=== PATIENT | female | born 1940 | race Caucasian/White ===

== ENCOUNTER → 2023-07-29 11:27 | Outpatient (REF) | payer MEDICARE, OTHER, SELFPAY | LOC: RAD 11:27 | PROVIDERS: ATTENDING PHYSICIAN Family Medicine | DX: M25.552 Pain in left hip (principal) | CPT/HCPCS: 72110; 73502 ==

== ENCOUNTER → 2023-08-18 13:08 | Outpatient (REF) | payer MEDICARE, OTHER, SELFPAY | LOC: WDC 13:08 | PROVIDERS: ATTENDING PHYSICIAN Internal Medicine Hematology & Oncology; FAMILY PHYSICIAN Family Medicine | DX: Z12.31 Encounter for screening mammogram for malignant neoplasm of breast (principal); Z85.3 Personal history of malignant neoplasm of breast; C50.112 Malignant neoplasm of central portion of left female breast | CPT/HCPCS: 77063; 77067 ==

== ENCOUNTER → 2023-09-03 13:18 | Outpatient (REF) | payer MEDICARE, OTHER, SELFPAY | LOC: RAD 13:18 | PROVIDERS: ATTENDING PHYSICIAN Internal Medicine Hematology & Oncology; FAMILY PHYSICIAN Family Medicine | DX: C50.112 Malignant neoplasm of central portion of left female breast (principal); M81.0 Age-related osteoporosis without current pathological fracture | CPT/HCPCS: 77080 ==

== ENCOUNTER 2024-04-24 19:07 | Inpatient (IN) | payer MEDICARE, OTHER, SELFPAY ==
[2024-04-24 15:18] VITALS: BP 166/109
[2024-04-24 15:51] LABS: % Basophils 0.4 % (0-2); % Eosinophils 0.4 % (0-6); % Immature Granulocytes 0.4 % (0-0.5); % Lymphocytes 9.5 % (20.5-51.1); % Monocytes 9.3 % (1.7-9.3); Absolute Lymphocytes 0.7 10^3/uL (1.2-3.4); Absolute Monocytes 0.7 10^3/uL (0.1-0.6); Absolute Neutrophils 5.7 10^3/uL (1.4-6.5); Hematocrit 41.4 % (37.0-47.0); Hemoglobin 13.5 g/dL (12.0-16.0); Mean Corp Hgb Conc. 32.6 g/dL (33.0-37.0); Mean Corpuscular Hgb 27.5 pg (27.0-31.0); Mean Corpuscular Volume 84.3 fL (81.0-99.0); Nucleated Red Blood Cells % 0 %; Platelet Count 113 10^3/uL (130-400); Red Blood Cell Count 4.91 10^6/uL (4.20-5.40); White Blood Cell Count 7.1 10^3/uL (4.8-10.8)
[2024-04-24 16:02] LABS: ALT (SGPT) 21 U/L (0-35); AST (SGOT) 18 U/L (14-36); Albumin 3.5 g/dl (3.5-5.0); Alkaline Phosphatase 96 U/L (38-126); Blood Urea Nitrogen 25 mg/dl (7-17); Calcium 9.4 mg/dl (8.4-10.2); Carbon Dioxide 29 mmol/L (22-30); Chloride 101 mmol/L (98-107); Glucose 115 mg/dl (70-99); Potassium 3.5 mmol/L (3.5-5.1); Sodium 138 mmol/L (135-145); Total Bilirubin 1.9 mg/dl (0.2-1.3); Total Protein 6.2 g/dl (6.3-8.2); eGFR > 60.00
[2024-04-24 16:16] LABS: NT-proBNP 18200 pg/ml; Troponin I 0.117 ng/ml
[2024-04-24 17:21] VITALS: BMI 28.4
[2024-04-24 17:25] VITALS: BP 169/126
[2024-04-24 17:26] VITALS: BP 157/101
--- NOTE | 2024-04-24 18:05 | ED.GENMED ---
History of Present Illness
General
Chief Complaint: Breathing Problem
Time Seen by Provider: 04/24/24 16:50
History of Present Illness
History of Present Illness:
84-year-old female with history of hypertension presents the emergency department for evaluation of paroxysmal nocturnal dyspnea as well as intermittent dyspnea on exertion for the past 1 to 2 weeks. She denies any chest pain. Has a feeling of
panic frequently throughout the night. No fevers or chills. Does have occasional cough with clear sputum production. Denies weight gain or leg swelling
Review of Systems
Review of Systems
Allergies reviewed?: Yes
All Other Systems: ROS reviewed and negative except as documented in HPI and ROS
Phy Exam
Physical Exam
Physical Exam:
GEN: Well appearing, NAD, WDWN
HEENT: Oral mucosa moist, no scleral icterus
Cardiac: Regular rate and rhythm
Lung: No respiratory distress, no tachypnea, diminished left lung sounds
MSK: No gross deformity or injuries, no significant peripheral edema
Skin: Good color, no pallor or jaundice, no rashes
Neuro: AO x3, moves all extremities freely
Psych: Calm, cooperative
Scores
Heart Failure Risk
Heart Failure Risk Score: Yes
History of Stroke or TIA: No
History of intubation for respiratory distress: No
Heart rate on ED arrival >/= 110: No
SaO2 <90% on arrival on room air: No
HR >/=110 during 3min walk test (or too ill to perform test): No
ECG has acute ischemic changes: Yes
Urea >/=12mmol/L (BUN 33.6mg/dL): No
Serum CO2>/=35mmol/L: No
Troponin I or T elevated to MD Level (0.4mg/dL): Yes
NT-proBNP >/=5,000ng/L (5,000pg/ml): Yes
HF Risk Score: 5
Admission Status: VERY HIGH RISK 39.8% Consider admission to hospital
Course
Orders/Labs/Results
Orders:
Orders
04/24/24 15:22
Electrocardiogram (*1) Urgent
Reason for Study: Shortness of Breath
EKG- Treatment ONCE
04/24/24 15:36
Complete Blood Count/With Diff Urgent
Comprehensive Metabolic Panel Urgent
Pro-BNP [NT-proBNP] Urgent
Troponin I Urgent
04/24/24 16:45
CR Chest - 2 Views Urgent
Comment:
Reason For Exam: soob
04/24/24 18:08
Furosemide [Lasix] 20 mg IV NOW STA
Potassium Chloride [KCl] 40 meq PO NOW STA
04/24/24 18:39
Admit/Transfer Patient As Directed
Co-Sign Provider:
Level of Care: Inpatient admission
Assign to:: Telemetry
Physician / Group: [email or web address]
Diagnosis: Acute HF - type unknown suspect acute on chr Diastolic CHF
Reason for Telemetry: Acute Heart Failure
Date to Stop Telemetry: 04/27/24
Time to Stop Telemetry: 11:00
Reason for Hospitalization: Acute HF - type unknown suspect acute on chr Diastolic CHF
Expected length of stay greater than two midnights?: Yes
ELOS- Estimated Length of Stay in days: 3
I certify the patient meets the requirements for IP care: Yes
04/24/24 18:40
Code Status As Directed
Resuscitation Status: Full Code
04/24/24 18:53
Code Status As Directed
Resuscitation Status: Do not resuscitate
Reached after discussion with pt or family/Healthcare POA: Yes
DNR Bracelet Application ONCE
04/27/24 11:00
DC Protocol for Telemetry ONCE
Abnormal Lab Results
04/24/24
15:36
MCHC 32.6 L g/dL
(33.0-37.0)
RDW 17.0 H %
(11.5-14.5)
Plt Count 113 L 10^3/uL
(130-400)
Absolute Lymphs (auto) 0.7 L 10^3/uL
(1.2-3.4)
Absolute Monos (auto) 0.7 H 10^3/uL
(0.1-0.6)
Neutrophils % 80.0 H %
(42.2-75.2)
Lymphocytes % 9.5 L %
(20.5-51.1)
BUN 25 H mg/dl
(7-17)
Glucose 115 H mg/dl
(70-99)
Total Bilirubin 1.9 H mg/dl
(0.2-1.3)
Troponin I 0.117 H* ng/ml
Total Protein 6.2 L g/dl
(6.3-8.2)
04/24/24 15:36
04/24/24 15:36
Vital Signs
Initial and Last Documented VS:
Initial Vital Signs
Temp Pulse Resp BP Pulse Ox
97.7 F 103 19 166/109 95
04/24/24 15:18 04/24/24 15:18 04/24/24 15:18 04/24/24 15:18 04/24/24 15:18
Last Documented Vital Signs
Temp Pulse Resp BP Pulse Ox
97.8 F 82 20 136/85 92
04/24/24 17:25 04/24/24 18:26 04/24/24 17:30 04/24/24 18:26 04/24/24 17:30
MDM/Problems Addressed
MDM/Problems Addressed:
Patient does have new EKG changes particularly V3 with some ischemic changes however no chest pain to suggest NSTEMI. Elevated troponin likely on the basis of acute CHF. Will admit for further workup and management
Comment
Comment:
EKG independently interpreted by me shows normal sinus rhythm with PVCs, T wave inversion noted in V3
Chest x-ray independently interpreted by me shows cardiomegaly with a left pleural effusion
*Critical Care Note
Total Time (30-74mins, 75-104mins- exclusive of procedures): Not Applicable
ED Attending Note
-
Portions of this chart may have been created with voice recognition software.� Occasional wrong word or��sound alike� substitutions may have occurred due to the inherent limitations of voice recognition software.
Discharge Plan
Departure
Patient Disposition: Admit
Date of Disposition: 04/24/24
Time of Disposition: 18:07
Admit to: Telemetry
Presentation/result/management discussed w/ accepting MD/DO: Hospitalist
Discharge Problem:
Acute CHF
Interventions
Interventions:
*Risk Screen - Suicide Last Done: 04/24/24 15:21
*General Assessment Last Done: 04/24/24 15:21
*Neglect/Abuse Screening Last Done: 04/24/24 15:21
*ED- Fall Risk Assessment Last Done: 04/24/24 15:21
*ED COVID-19 Vaccine History Last Done: 04/24/24 15:21
ED- Cardiac Assessment Last Done: 04/24/24 19:52
ED- Pulmonary Assessment Last Done: 04/24/24 19:52
[2024-04-24] MEDS: KCL 40 MEQ PO (18:26)
[2024-04-24] MEDS: LASIX 20 MG IV (18:26)
--- NOTE | 2024-04-24 18:33 | HPS.HSE ---
Addendum entered and electronically signed by Live Day MD 04/25/24 08:32:
Final CXR report
- Cardiomegaly with small to moderate bilateral pleural effusions, left slightly greater than right.
- Mild increased interstitial markings, especially in the left perihilar region, suggestive of mild interstitial pulmonary edema.
Original Note:
Family Physician
-
Family Physician: Cecilia Bourgeois
Chief Complaint
-
SoB
History of Present Illness
84F HX HX HTN, HLD seen at ER
- evaluation of paroxysmal nocturnal dyspnea
- intermittent dyspnea on exertion for the past 1 to 2 weeks.
- feeling of panic frequently throughout the night.
ROS:
- denies any chest pain.
- no fevers or chills.
- occasional cough with clear sputum production.
- denies weight gain or leg swelling
Medical History
Past Medical History
Past Medical History: Reports HTN and Hypercholesterolemia
Past Surgical History: Reports Other
Social History
Tobacco: Non-smoker
Alcohol: None
Drug: None
Family History
Family History: Not pertinent
Allergies / Home Medications
Allergies reflects when Allergies were last updated in [facility].
Home Medications with original date entered in [facility]
Allergy/Medication List:
Allergies
Allergy/AdvReac Type Severity Reaction Status Date / Time
chemo drug Allergy eyes Uncoded 10/19/19 08:36
turned
red;chest
constricted
Home Medications
acetaminophen 325 mg tablet 650 mg PO Q4HPRN PRN discomfort 10/15/19
cholecalciferol (vitamin D3) 50 mcg (2,000 unit) tablet 2,000 units PO DAILY Supplement 10/15/19
letrozole 2.5 mg tablet 2.5 mg PO DAILY Hormonal agent 10/15/19
lisinopril 20 mg tablet 20 mg PO DAILY Blood pressure 10/15/19
atorvastatin 10 mg tablet 20 mg PO QPM 11/06/20
alendronate 70 mg tablet 70 mg PO SA 04/24/24
Review of Systems
-
Constitutional: Reports No Symptoms
EENT: Reports No Symptoms
Respiratory: Reports See HPI and Trouble Breathing
Cardiac: Reports No Symptoms
Abdomen/GI: Reports No Symptoms
: Reports No Symptoms
Musculoskeletal: Reports No Symptoms
Skin: Reports No Symptoms
Neurological: Reports No Symptoms
Endocrine: Reports No Symptoms
Hematologic/Lymphatic: Reports No Symptoms
Psych: Reports No Symptoms
Physical Exam
Vital Signs
Vital Signs
Temp Pulse Resp BP Pulse Ox
97.8 F 82 20 136/85 92
04/24/24 17:25 04/24/24 18:26 04/24/24 17:30 04/24/24 18:26 04/24/24 17:30
Physical Exam
General: Well Developed, Well Nourished and No Apparent Distress
HEENT: NormoCephalic, Moist mucous membranes and Atraumatic
Respiratory: Clear
Cardiac: S1/S2 and Regular Rhythm; No Murmur or Rub
GI: Soft, Non Tender, Non Distended and Normal Bowel Sounds; No Organomegaly
Rectal: Deferred by Provider
Musculoskeletal: No Clubbing, No Cyanosis and No Edema
Skin: No Rash
Neuro: Nonfocal/grossly intact
Laboratory Results
-
04/24/24 15:36
04/24/24 15:36
Laboratory Results
Total Bilirubin 1.9 mg/dl (0.2-1.3) H 04/24/24 15:36
AST 18 U/L (14-36) 04/24/24 15:36
ALT 21 U/L (0-35) 04/24/24 15:36
Alkaline Phosphatase 96 U/L (38-126) 04/24/24 15:36
Troponin I 0.117 ng/ml H* 04/24/24 15:36
Data Reviewed
-
Diagnostic Radiology: Report Reviewed by me
Medical Tests (Nuc Med, Echo, EKG etc): Report Reviewed by me
Lab Data: Labs Reviewed by me
Impression/Plan
-
Vital Signs
Temp Pulse Resp BP Pulse Ox
97.8 F 82 20 136/85 92
04/24/24 17:25 04/24/24 18:26 04/24/24 17:30 04/24/24 18:26 04/24/24 17:30
04/24/24
15:18 04/24/24
17:25
Temp 97.7 F
Pulse 103 83
Blood pressure 166/109 169/126
SaO2 95
Oxygen Mode of Delivery Room air
Laboratory Tests
1804/24/24
09:10 15:36
WBC 7.1
Hgb 13.5
Plt Count 186 113 L
BUN 25 H
Creatinine 0.8
eGFR > 60.00
Total Bilirubin 1.9 H
AST 18
ALT 21
Troponin I 0.117 H*
Oau-B-Kxsvannqemi Pept [id number]
CXR my view:
Cardiomegaly
Lt sided pleural effusion
CHF ?
EKG report
SINUS RHYTHM WITH PREMATURE ATRIAL COMPLEXES
POSSIBLE LEFT ATRIAL ENLARGEMENT
RIGHT BUNDLE BRANCH BLOCK
T WAVE ABNORMALITY, CONSIDER INFERIOR ISCHEMIA
ABNORMAL ECG
WHEN COMPARED WITH ECG OF 04-OCT-2019 09:23,
PREMATURE ATRIAL COMPLEXES ARE NOW PRESENT
T WAVE INVERSION MORE EVIDENT IN INFERIOR LEADS
T WAVE INVERSION NOW EVIDENT IN ANTERIOR LEADS
02/14/20 TTE
LVEF 60-65
Normal diastolic filling pattern for age.
Normal right ventricular size and function.
mild MR
mild TR
PASP 35
NO PRIOR hospitalist admission:
ASSESSMENT & PLAN
Acute HF - type unknown suspect acute on chr Diastolic CHF
Lt sided pleural effusion
Significant proBNP
Elevated TPN due to NIMI
Known to Dr Judith Vasquez
- IV Lasix
- Daily Wt, IOs, BMP
- trend TPN till peak
- ECHO in AM
- [facility] card consult
HX Lt breast CA 3 yrs ago
S/p mastectomy, XRT and 2rounds of chemo
- c/w Letrozole
- f/u with [facility]
Essential HTN
- c/w [employer] Lisinopril
HLD
- on [employer] Atorvastatin
DVT Px: LMWH
DNR per patient
IP TLM
[2024-04-24 21:20] VITALS: BP 175/115; BMI 27.1
[2024-04-24 23:03] LABS: Troponin I 0.129 ng/ml
[2024-04-24 23:48] VITALS: BP 144/92
--- NOTE | 2024-04-25 00:25 | PTCARENOTE ---
Pt with 8 beat run tachycardia, irregular rate, unable to catch on ekg. Strip placed in chart. House [employer] aware.
[2024-04-25 03:49] VITALS: BP 158/94
[2024-04-25 04:41] LABS: Troponin I 0.159 ng/ml
--- NOTE | 2024-04-25 05:22 | PTCARENOTE ---
pts troponin 0.117 0.129 0.159, EKGs completed. House [employer] aware.
[2024-04-25 06:00] VITALS: BMI 26.4
[2024-04-25 07:15] VITALS: BP 160/99
[2024-04-25] MEDS: LASIX 20 MG IV ×2 (08:49→16:41)
[2024-04-25] MEDS: ZESTRIL 20 MG PO (08:50)
[2024-04-25] MEDS: FEMARA 2.5 MG PO (08:50)
[2024-04-25 10:47] LABS: ALT (SGPT) 22 U/L (0-35); AST (SGOT) 19 U/L (14-36); Albumin 3.5 g/dl (3.5-5.0); Alkaline Phosphatase 97 U/L (38-126); Blood Urea Nitrogen 21 mg/dl (7-17); Calcium 9.5 mg/dl (8.4-10.2); Carbon Dioxide 33 mmol/L (22-30); Chloride 100 mmol/L (98-107); Direct Bilirubin 0.4 mg/dl (0.0-0.4); Estimated Creatinine Clearance 49 ml/min; Glucose 135 mg/dl (70-99); HDL Cholesterol 49 mg/dl; LDL Cholesterol, Calculated 84 mg/dl; Magnesium 1.7 mg/dl (1.6-2.3); Potassium 3.6 mmol/L (3.5-5.1); Sodium 140 mmol/L (135-145); Total Bilirubin 2.5 mg/dl (0.2-1.3); Total Cholesterol 149 mg/dl (50-199); Total Protein 6.3 g/dl (6.3-8.2); Triglyceride 82 mg/dl (10-149); Very Low Density Lipoprotein 16 mg/dl (0-30); eGFR > 60.00
--- NOTE | 2024-04-25 10:53 | W.PN.HOSP.TC ---
Today's Communication/Plan
-
Monitor vital signs see plan
Continue with IV Lasix
Trend troponin
Cardiology to see
Echo
Assessment / Plan
Assessment / Plan
Acute congestive heart failure exacerbation, unknown EF
Echo 2020 with EF 60 to 65%
Continue with IV Lasix
Elevated proBNP
Chest x-ray with fluid overload
I's and O's
Echo
Cardiology consulted
Elevated troponin
Continue to trend
Denies any chest pain
History of breast cancer status post mastectomy, and XRT and 2 rounds of chemotherapy
Continue with letrozole
Follows up with oncology
Essential hypertension
Continue lisinopril
Hyperlipidemia
DVT prophylaxis
Lovenox
DNR
General: Well Developed, Well Nourished and No Apparent Distress
HEENT: NormoCephalic, Moist mucous membranes and Atraumatic
Respiratory: Clear
Cardiac: S1/S2 and Regular Rhythm; No Murmur or Rub
GI: Soft, Non Tender, Non Distended and Normal Bowel Sounds
Musculoskeletal: No Edema
Neuro: Nonfocal/grossly intact
Anticipated Discharge: > 48 hours
Subjective/Interval History
-
Date of Service: April 25, 2024
Denies chest pain
Objective Data
-
Labs:
Laboratory Results
04/25/24
10:25
Sodium 140
Potassium 3.6
Chloride 100
Carbon Dioxide 33 H
BUN 21 H
Creatinine 0.8
Glucose 135 H
Calcium 9.5
Total Bilirubin 2.5 H
AST 19
ALT 22
Alkaline Phosphatase 97
Vital Signs:
Vital Signs
Temp Pulse Resp BP Pulse Ox
97.5 F 81 16 160/99 96
04/25/24 07:15 04/25/24 08:50 04/25/24 07:15 04/25/24 08:50 04/25/24 07:15
I&O
04/24/24 04/25/24 04/26/24
06:59 06:59 06:59
Output Total 1100 / 1100
Balance -1100 / -1100
--- NOTE | 2024-04-25 11:01 | CON.CAR ---
Consultation
Consultation Request
Date/Time Consultation Requested: April 24, 2024
Date/Time Consultation Performed: April 25, 2024
Requesting Provider: Hospitalist
Performing Provider: Dr Pancho valentine
Reason for Consultation: Congestive heart failure, acute symptomatic
Medical History
-
Chief Complaint: Shortness of breath, dyspnea on exertion
History of Present Illness:
Elderly woman who presented to the emergency department with intermittent dyspnea on exertion as well as waking up in the middle of the night with dyspnea. This has been progressive over the course of the past 2 weeks. No chest pain. No fevers
chills or night sweats.
Presenting EKG is sinus rhythm with PACs, right bundle branch block and T wave abnormalities inferiorly and anteriorly serial EKGs essentially unchanged
Blood work on presentation includes elevated proBNP at 18,200, troponin values 0.117 -> 0.129 -> 0.159 -> 0.143, BUN and creatinine of 25 and 0.8 with sodium of 138 and potassium 3.5, total cholesterol 149, LDL 84, HDL 49, triglycerides 82,
hemoglobin and hematocrit 13.5 and 41
CXR findings consist of mild interstitial pulmonary edema as well as small to moderate-sized bilateral pleural effusions with the left being greater than the right
Echocardiogram from February 14, 2020 finds LVEF of 60 to 65%, normal RV size and function with mild mitral regurgitation and mild tricuspid regurgitation.
Past medical history:
Right bundle branch block
Essential hypertension
Breast cancer
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
Treated with chemotherapy which included Adriamycin and Cytoxan. Then treated with Taxol but changed to paclitaxel given adverse reaction to Taxol.
She also received 6 weeks of radiation.
She underwent mastectomy 10/19/2019.
Dyslipidemia
Social History
Tobacco: Non-Smoker
Alcohol: None
Drug: None
Family History
Family History: Reviewed & Not Pertinent
Allergies / Home Medications
Allergy/AdvReac Type Severity Reaction Status Date / Time
chemo drug Allergy eyes Uncoded 10/19/19 08:36
turned
red;chest
constricted
�Medication �Instructions �Recorded �Confirmed �Type
acetaminophen 325 mg tablet 650 mg PO Q4HPRN PRN discomfort 10/15/19 04/24/24 History
cholecalciferol (vitamin D3) 50 2,000 units PO DAILY Supplement 10/15/19 04/24/24 History
mcg (2,000 unit) tablet
letrozole 2.5 mg tablet 2.5 mg PO DAILY Hormonal agent 10/15/19 04/24/24 History
lisinopril 20 mg tablet 20 mg PO DAILY Blood pressure 10/15/19 04/24/24 History
atorvastatin 10 mg tablet 20 mg PO QPM 11/06/20 04/24/24 History
alendronate 70 mg tablet 70 mg PO SA 04/24/24 04/24/24 History
Review of Systems
-
History Source: Patient
All other systems: Negative unless noted
Constitutional: No Symptoms
EENT: No Symptoms
Respiratory: Trouble Breathing
Cardiac: Other (Dyspnea on exertion as well as PND, no chest pain.)
Abdomen/GI: No Symptoms
: No Symptoms
Musculoskeletal: No Symptoms
Skin: No Symptoms
Neurological: No Symptoms
Endocrine: No Symptoms
Hematologic/Lymphatic: No Symptoms
Physical Exam
Vital Signs
Temp Pulse Resp BP Pulse Ox
97.5 F 81 16 160/99 96
04/25/24 07:15 04/25/24 08:50 04/25/24 07:15 04/25/24 08:50 04/25/24 07:15
Lab Results
04/24/24 15:36
04/25/24 10:25
Troponin I 0.159 ng/ml H* 04/25/24 03:46
Bhk-Z-Fsopzxcajci Pept 50919 pg/ml 04/24/24 15:36
Physical Exam
General: Well Developed, Well Nourished, No Apparent Distress and Comfortable
HEENT: Normocephalic, Anicteric and Moist Mucous Membranes
Respiratory: Clear and Other (Clear to auscultation bilaterally without wheezes rales or rhonchi)
Cardiac: S1/S2 (No S3 no S4), Regular Rhythm and Murmur (Is a grade 1/6 apical holosystolic murmur no rubs)
Breast: Deferred by me
GI: Soft, Non Tender, Non Distended and Normal Bowel Sounds
Rectal: Deferred by Provider
Musculoskeletal: No Clubbing, No Cyanosis and No Edema
Skin: Warm
Neuro: Awake, Alert, Oriented and AO x 3
Psych: Calm
Impression / Plan
-
Impression:
Acute congestive heart failure, status of LV function uncertain (she did receive Adriamycin as part of her chemotherapy for breast cancer)
Elevated but essentially stable serial troponin values suggestive of non-MA troponin elevation in the setting of acute congestive heart failure
Breast cancer
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
Treated with chemotherapy which included Adriamycin and Cytoxan. Then treated with Taxol but changed to paclitaxel given adverse reaction to Taxol.
She also received 6 weeks of radiation.
She underwent mastectomy 10/19/2019.
Right bundle branch block
Essential hypertension
Dyslipidemia
Recommendations:
Symptoms are suggestive of progressive congestive heart failure over the past 1 to 2 weeks, she is volume overloaded by exam with elevated proBNP and chest x-ray with pulmonary edema as well as bilateral pleural effusions all consistent with acute
exacerbation of congestive heart failure. Preserved versus reduced LV function not yet known. 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
She describes feeling significantly improved overnight, with diuresis
IV Lasix diuresis with close attention to daily weights, fluid balance, renal function, electrolytes ...keep potassium between 4 and 5 and magnesium between 2 and 3
Check echocardiogram in the morning
KAPIL inhibitor. Currently on lisinopril 20 mg daily but she is rather hypertensive, will increase lisinopril to 40 mg daily
Will add beta-tyesha, carvedilol 3.125 mg twice daily and uptitrate as tolerates
Consideration for further guideline directed medical therapy as we assess her response LV fxn and assess response to increased KAPIL inhibitor and addition of beta-tyesha (t/c SGLT2 inhibitor, aldosterone antagonist)
Total time spent today was 76 minutes in preparing to see the patient, seeing the patient and coordination of care. This included review of recent laboratory evaluations, cardiact testing, imaging studies, primary care rtecords, specialty
consultations, hospital records, as well as personally interviewing and examining the patient, which included discussion of their tests, review/ordering medications, and communicating with other healthcare professionals and also treatment planning
as well as counseling.
Data Reviewed
-
EKG: Tracing Personally Visualized and interpreted
Radiology: Image Personally Visualized and interpreted
Medical Tests (Nuc Med, Echo etc): Report Reviewed by me
Labs: Labs Reviewed by me
Old Records: Reviewed
[2024-04-25 11:02] LABS: Troponin I 0.143 ng/ml
[2024-04-25 11:15] VITALS: BP 128/57
[2024-04-25 11:25] LABS: TSH Reflex To Free T4 2.77 uIU/ml (0.47-4.68)
--- NOTE | 2024-04-25 11:36 | CM ---
CM following rte: discharge planning.
Reviewed pt's chart, met with pt.
Pt is an 84 year old female, admitted with primary dx of Acute congestive heart failure exacerbation, unknown EF.
Pt reports she lives alone in a big barn like [place], 3 steps to enter, has 2 children and [place]. Pt reports she has supportive friends she can rely on them. Pt reports she ambulates independently with a cane, had [facility] in the past, no
SNF history.
PT and OT will evaluate the pt to determine a level of care at discharge.
PCP: Cecilia Bourgeois
Pharmacy: [facility]
D/C plan: home with most likely VN services. PT/OT to evaluate.
CM will follow with discharge plan updates as hospitalization progresses
[2024-04-25] MEDS: COREG 3.125 MG PO ×2 (12:54→22:12)
[2024-04-25 15:10] VITALS: BP 155/98
[2024-04-25] MEDS: LOVENOX 40 MG SC (18:03)
[2024-04-25] MEDS: LIPITOR 20 MG PO (18:03)
[2024-04-25 19:59] VITALS: BP 138/84
[2024-04-25 23:55] VITALS: BP 130/87
[2024-04-26] VITALS (7 sets, daily range): BP systolic 124–154; BP diastolic 68–96; PULSE 68; O2SAT 100; BMI 25.6
[2024-04-26 08:54] LABS: % Basophils 0.5 % (0-2); % Eosinophils 0.5 % (0-6); % Immature Granulocytes 0.5 % (0-0.5); % Lymphocytes 5.7 % (20.5-51.1); % Monocytes 8.6 % (1.7-9.3); % Neutrophils 84.2 % (42.2-75.2); Absolute Lymphocytes 0.5 10^3/uL (1.2-3.4); Absolute Monocytes 0.8 10^3/uL (0.1-0.6); Absolute Neutrophils 7.5 10^3/uL (1.4-6.5); Hematocrit 42.7 % (37.0-47.0); Hemoglobin 13.8 g/dL (12.0-16.0); Mean Corp Hgb Conc. 32.3 g/dL (33.0-37.0); Mean Corpuscular Hgb 27.2 pg (27.0-31.0); Mean Corpuscular Volume 84.1 fL (81.0-99.0); Nucleated Red Blood Cells % 0 %; Platelet Count 110 10^3/uL (130-400); Red Blood Cell Count 5.08 10^6/uL (4.20-5.40); White Blood Cell Count 8.8 10^3/uL (4.8-10.8)
[2024-04-26 08:58] LABS: Blood Urea Nitrogen 26 mg/dl (7-17); Calcium 9.5 mg/dl (8.4-10.2); Carbon Dioxide 36 mmol/L (22-30); Chloride 94 mmol/L (98-107); Estimated Creatinine Clearance 44 ml/min; Glucose 91 mg/dl (70-99); Potassium 3.5 mmol/L (3.5-5.1); Sodium 140 mmol/L (135-145); eGFR > 60.00
[2024-04-26] MEDS: LASIX 20 MG IV ×2 (09:02→17:11)
[2024-04-26] MEDS: FEMARA 2.5 MG PO (09:05)
[2024-04-26] MEDS: ZESTRIL 40 MG PO (09:05)
[2024-04-26] MEDS: COREG 3.125 MG PO ×2 (09:06→20:12)
--- NOTE | 2024-04-26 11:53 | W.PN.HOSP.TC ---
Today's Communication/Plan
-
Monitor vital signs see plan
Continue with IV diuresis
Echo today
pt/ot
replete K
check magnesium
Assessment / Plan
Assessment / Plan
Acute congestive heart failure exacerbation, unknown EF
Echo 2020 with EF 60 to 65%
Continue with IV Lasix
Elevated proBNP
Chest x-ray with fluid overload
I's and O's
Echo
Cardiology following
cw coreg
SVT's ovenright
on coreg
replete K
check magnesium
Elevated troponin
Continue to trend
Denies any chest pain
History of breast cancer status post mastectomy, and XRT and 2 rounds of chemotherapy
Continue with letrozole
Follows up with oncology
Essential hypertension
Continue lisinopril
Hyperlipidemia
DVT prophylaxis
Lovenox
DNR
General: Well Developed, Well Nourished and No Apparent Distress
HEENT: NormoCephalic, Moist mucous membranes and Atraumatic
Respiratory: Clear
Cardiac: S1/S2 and Regular Rhythm; No Murmur or Rub
GI: Soft, Non Tender, Non Distended and Normal Bowel Sounds
Musculoskeletal: No Edema
Neuro: Nonfocal/grossly intact
I spent a total of 52 minutes with the patient or on the floor. More than 50% of this time involved counseling and coordination of care.
Anticipated Discharge: 24 - 48 hours
Subjective/Interval History
-
Date of Service: April 26, 2024
denies pain
Objective Data
-
Labs:
Laboratory Results
04/26/24
07:46
WBC 8.8
Hgb 13.8
Hct 42.7
Plt Count 110 L
Sodium 140
Potassium 3.5
Chloride 94 L
Carbon Dioxide 36 H
BUN 26 H
Creatinine 0.9
Glucose 91
Calcium 9.5
Vital Signs:
Vital Signs
Temp Pulse Resp BP Pulse Ox
97.5 F 75 20 138/78 95
04/26/24 07:10 04/26/24 07:10 04/26/24 07:10 04/26/24 07:10 04/26/24 07:10
I&O
04/25/24 04/26/24 04/27/24
06:59 06:59 06:59
Intake Total 720 / 720 480 / 480
Output Total 1100 / 1100 1650 / 1650 650 / 650
Balance -1100 / -1100 -930 / -930 -170 / -170
[2024-04-26] MEDS: KCL 40 MEQ PO (12:46)
[2024-04-26 13:09] LABS: Magnesium 1.6 mg/dl (1.6-2.3)
--- NOTE | 2024-04-26 14:08 | W.PN.CARDCBS ---
Addendum entered and electronically signed by Ariana Butler DO 04/26/24 16:35:
I saw and examined the patient.
The Supervisor Sewing Department's note was reviewed and I agree with the note.
Comment: Patient was seen and examined overall feeling better with improved shortness of breath. She states that the panic attacks that she were having prior to admission have resolved and she slept well last night. She denies chest pain.
GEN: No distress, awake, Ox3
HEENT:mmm
LUNGS: decreased at bases, otherwise CTA
CV: Reg, S1/S2, 2/6 syst LSB
ABD: soft, BS+, NT/ND
EXT: No edema
NEURO: Gross non-focal
Plan:
Heart failure with reduced ejection fraction
-Shortness of breath has improved with IV Lasix
- She has diuresed 9 lbs since admit on 04/24/2024
-2D echocardiogram: 2D echocardiogram with mildly reduced left ventricular systolic function with global hypokinesis and EF 40-45%. Thai epic GLS mildly reduced at -12.7%. Enlarged right ventricle with normal RV systolic function and biatrial
dilatation. Moderate mitral and tricuspid regurgitation. Estimated pulmonary artery systolic pressure 35-40 mmHg. No pericardial effusion. Pleural effusion is present.
-Continue IV Lasix today; patient was not on Lasix at the time of hospitalization. Given new echo findings will likely need oral Lasix at time of discharge
-Monitor basic metabolic profile. Keep K greater than 4, mag greater than 2
-Elevated cardiac troponin which has been relatively flat: 0.117, 0.129, 0.159, 0.143. Likely related to non-UT elevation in the setting of heart failure.
-Initiate goal-directed medical therapy
-Case management to assess because of SGLT2 inhibitor
-Given risk factors would pursue outpatient ischemic evaluation.
-CHF education and monitoring
PSVT overnight which appears to be an atrial tachycardia
-May be contributing to symptoms
-Continue inpatient telemetry monitoring and consider outpatient ambulatory patch monitor
-carvedilol 3.125 mg twice daily added 04/25/2024; uptitrate tomorrow if blood pressure allows
-IV magnesium, mag 1.6. Keep mag greater than 2
-Keep K greater than 4
-TSH within normal limits.
Hypertension
-Continue lisinopril 40 mg daily which was uptitrated today from her outpatient dose of 20 mg daily.
-Continue carvedilol 3.125 mg twice daily added 04/25/2024.
-Goal normotension
Dyslipidemia
-Total cholesterol 149, LDL 84, HDL 49, triglycerides 82
-Will increase outpatient atorvastatin to 40 mg daily
-Outpatient ischemic evaluation
Breast cancer status postchemotherapy which included Adriamycin and Cytoxan. Then treated with Taxol but changed to paclitaxel given adverse reaction to Taxol and XRT in 2019
-Letrozole
-Follows with oncology
Original Note:
Today's Communication / Plan
-
-continue IV diuresis
-await echo result
Impression / Plan
-
Impression:
Acute congestive heart failure, status of LV function uncertain (she did receive Adriamycin as part of her chemotherapy for breast cancer)
Elevated but essentially stable serial troponin values suggestive of non-UT troponin elevation in the setting of acute congestive heart failure
Breast cancer
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
Treated with chemotherapy which included Adriamycin and Cytoxan. Then treated with Taxol but changed to paclitaxel given adverse reaction to Taxol.
She also received 6 weeks of radiation.
She underwent mastectomy 10/19/2019.
Right bundle branch block
Essential hypertension
Dyslipidemia
Recommendations:
-presented with dyspnea on exertion, feeling of panic attacks at night, PND. Initial evaluation consistent with volume overload with elevated proBNP and chest x-ray with pulmonary edema as well as bilateral pleural effusions all consistent with
acute exacerbation of congestive heart failure.
-diuresed 9 lbs since admit on 04/24/2024
-symptomatically feels improved - was able to sleep well last night without SOB
-Echo done today-pending. Last echo 2020 EF 60-65%. 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
-continue IV Lasix diuresis with close attention to daily weights, fluid balance, renal function, electrolytes ...keep potassium between 4 and 5 and magnesium between 2 and 3
-K 3.5-was repleted with 40 meq KCl today
-Lisinopril uptitrated to 40 mg daily, first dose today 04/26/2024
-carvedilol 3.125 mg twice daily added 04/25/2024
Consideration for further guideline directed medical therapy as we assess her response LV fxn and assess response to increased KAPIL inhibitor and addition of beta-tyesha (t/c SGLT2 inhibitor, aldosterone antagonist)
-telemetry personally reviewed: NSR 70s-80s, pacs, atrial couplet
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
Subjective
Date of Service: April 26, 2024
-slept well last night, no SOB or episodes of feeling panic attack like she had prior to admission
Objective
Labs:
04/26/24 07:46
04/26/24 07:46
Labs
Hgb 13.8 g/dL (12.0-16.0) 04/26/24 07:46
Hct 42.7 % (37.0-47.0) 04/26/24 07:46
Plt Count 110 10^3/uL (130-400) L 04/26/24 07:46
Sodium 140 mmol/L (135-145) 04/26/24 07:46
Potassium 3.5 mmol/L (3.5-5.1) 04/26/24 07:46
BUN 26 mg/dl (7-17) H 04/26/24 07:46
Creatinine 0.9 mg/dL (0.6-1.0) 04/26/24 07:46
Glucose 91 mg/dl (70-99) 04/26/24 07:46
Troponins
04/24/24 04/24/24 04/25/24
15:36 22:23 03:46
Troponin I 0.117 H* 0.129 H* 0.159 H*
04/25/24
10:25
Troponin I 0.143 H*
Vital Signs and I&O:
Vital Signs
Temp Pulse Resp BP Pulse Ox
98.0 F 71 16 124/68 97
04/26/24 11:30 04/26/24 11:30 04/26/24 11:30 04/26/24 11:30 04/26/24 11:30
Vital Signs
Temp Pulse Resp BP Pulse Ox
98.0 F 71 16 124/68 97
04/26/24 11:30 04/26/24 11:30 04/26/24 11:30 04/26/24 11:30 04/26/24 11:30
Intake & Output
04/24/24 04/25/24 04/26/24 04/27/24
06:59 06:59 06:59 06:59
Intake Total 720 / 720 480 / 480
Output Total 1100 / 1100 1650 / 1650 650 / 650
Balance -1100 / -1100 -930 / -930 -170 / -170
Physical Exam
Physical Exam
GEN: No distress, awake, Ox3
HEENT: supple, anicteric, mmm
LUNGS: decreased at bases, otherwise CTA
CV: Reg, S1/S2, 2/6 syst LSB
ABD: soft, BS+, NT/ND
EXT: No edema
NEURO: Gross non-focal
SKIN: No rash
[2024-04-26] MEDS: MAGNESIUM SULFATE 102 GRAMS IV (14:54)
--- NOTE | 2024-04-26 16:30 | CM ---
IV diuresis continues .
Will need Pt Ot for dc planning.
PLAN Needs PT for discharge planning
[2024-04-26] MEDS: LIPITOR 40 MG PO (17:10)
[2024-04-26] MEDS: LOVENOX 40 MG SC (17:10)
[2024-04-27] VITALS (7 sets, daily range): BP systolic 109–155; BP diastolic 57–87; PULSE 66; O2SAT 96; BMI 24.8
[2024-04-27] MEDS: COREG 3.125 MG PO (08:06)
[2024-04-27] MEDS: LASIX 20 MG IV ×2 (08:07→17:16)
[2024-04-27] MEDS: ZESTRIL 40 MG PO (08:08)
[2024-04-27] MEDS: FEMARA 2.5 MG PO (08:08)
--- NOTE | 2024-04-27 09:04 | CM ---
Addendum entered by Lashonda De Leon 04/27/24 12:26:
SNF recs by therapy
Bedside meeting with pt
She is in agreement with SNF- PAC provided
PASRR completed and referrals sent via [facility]- pending
Discharge Disposition- SNF
Original Note:
CM consult for med pricing
Call with [facility] [phone]
Farxiga 10 mg QD
30 day retail- $468.03
90 day mail order- $652.65
Jardiance 10 mg QD
30 day retail- $488.46
90 day mail order- $665.60
Has met $0/$590 deductible
Has met $102.14/$2000 out of pocket max
TT/cardio
--- NOTE | 2024-04-27 09:18 | W.PN.CARDCBS ---
Addendum entered and electronically signed by Mike Shipley MD 04/27/24 16:26:
84-year-old woman admitted with acute HFmrEF, average GLS -12.7% with dilated RV, moderate MR and detectable troponin
She offers no complaints, still feels relatively weak, dyspnea is better
PMH: Locally advanced ER and AL positive HER2 negative right breast cancer treated with atria and Cytoxan, mastectomy and, right bundle branch block, hypertension, hyperlipidemia with XRT in 2019
Medications: Letrozole 2.5 mg daily, Lovenox 40 mg daily, furosemide 20 mg IV twice daily, lisinopril 40 mg daily, atorvastatin 40 mg nightly, carvedilol 6.25 mg twice daily, currently not on outpatient atorvastatin, lisinopril was 20 mg daily as
outpatient
137/74, pulse 57, respirate 16, afebrile, sats 97%, weight is 69.6 kg, if accurate down 2.2 kg, weight on admission was 79.9 kg, appears fatigued, somewhat chronically ill, but no acute distress or dyspnea, head neck exam unremarkable, lungs are
clear cardiac exam is notable for normal JVD, soft apical systolic murmur, abdomen benign, very mild edema left lower extremity, pulses intact
White count 7.9, hemoglobin 14.2, platelets are 1 9, potassium is 3.2, BUN and creatinine are 29 and 0.9, magnesium is 1.8, proBNP was 18,200 on admission, troponin was 0.1, LDL 84
Impression:
Acute heart failure with mildly reduced EF
Moderate MR
Reduced global longitudinal strain with a history of Adriamycin therapy
History of breast cancer, ER/AL positive HER2 negative, mastectomy and radiation,
Right bundle branch block
Hypertension
Hyperlipidemia
Plan:
She appears close to euvolemic at this time, we will add spironolactone
SGLT2 antagonist is cost prohibitive.
Entresto could be considered but also likely to be cost prohibitive and indication is less strong than SGLT2 antagonist
Potassium is being supplemented, and spironolactone should help
Transition to oral furosemide in a.m.
Begin discharge planning
Original Note:
Today's Communication / Plan
-
Echo yesterday revealed new LV dysfunction
consider transition to oral diuretics soon. Not on oral diuretic prior to admission, will need at d/c.
Increasing GDMT
SGLT2 cost prohibitive
Impression / Plan
-
Impression:
Acute congestive heart failure, previous echo 2020 with EF 65%, status of LV function uncertain on admission (she did receive Adriamycin as part of her chemotherapy for breast cancer), echo 04/26/2024 at EF 40-45%
Elevated but essentially stable serial troponin values suggestive of non-MN troponin elevation in the setting of acute congestive heart failure
Breast cancer
Diagnosed with locally advanced node positive ER/AL positive H ER 2 negative cancer of the right breast
Treated with chemotherapy which included Adriamycin and Cytoxan. Then treated with Taxol but changed to paclitaxel given adverse reaction to Taxol.
She also received 6 weeks of radiation.
She underwent mastectomy 10/19/2019.
Right bundle branch block
Essential hypertension
Dyslipidemia
Cardiovascular testing:
Echo 02/14/2020: Normal LV size and function, LVEF 66 5%, normal RV size and function, mild MR, mild TR
Echo 04/26/2024: LVEF 40 to 45%, LV global longitudinal strain is -12.7%, enlarged RV, normal RV function, biatrial enlargement, moderate MR, mild TR, PAP 35 to 40 mmHg. Compared to echo 02/2020 LV systolic dysfunction is new, RV enlargement is new,
mitral and tricuspid regurgitation have progressed
Recommendations:
-presented with dyspnea on exertion, feeling of panic attacks at night, PND. Initial evaluation consistent with volume overload with elevated proBNP and chest x-ray with pulmonary edema as well as bilateral pleural effusions all consistent with
acute exacerbation of congestive heart failure.
-diuresed 14 lbs since admit on 04/24/2024
-symptomatically feels improved - was able to sleep well again last night without SOB
-Echo 04/26/2024 shows new decline in LV function with EF 40-45%, global longitudinal strain -12.7%. enlarged RV, nl RV fxn, biatrial enlargement, mod MR, mod TR, PAP 35-40mmHgpending. Last echo 2020 EF 60-65%.
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
-Patient is established patient with Dr. Judith Vasquez and has follow-up scheduled in June. Will add additional heart failure follow-up with [facility] within 1 week of discharge once we know when she is going home
-continue IV Lasix diuresis with close attention to daily weights, fluid balance, renal function, electrolytes ...keep potassium between 4 and 5 and magnesium between 2 and 3
-Rec'd KCl 40 meq today for K 3.2.
-Lisinopril has been uptitrated to 40 mg daily
-carvedilol 3.125 mg twice daily added 04/25/2024, will uptitrate to 6.25 mg twice daily (had 14 beat run of atrial tachycardia on telemetry last night)
Case management consulted for SGLT2 inhibitor, cost $468 for 30-day, $652 for 90-day supply of Farxiga. Jardiance more expensive. Patient is not able to afford this
-Consider adding spironolactone given heart failure reduced EF and hypokalemia
-Elevated cardiac troponin which has been flat, 0.117, 0.129, 0.159, 0.143. Likely related to non-MN elevation in setting of heart failure. Rec: outpatient ischemic evaluation.
-telemetry personally reviewed: NSR 60s-80s, pacs, 14 beat run atrial tachycardia
-Increase carvedilol as above
PT/OT
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
Subjective
Date of Service: April 27, 2024
-echo shows new decline in LV EF 40-45%
-continues IV diuresis
Objective
Labs:
Labs
Hgb 13.8 g/dL (12.0-16.0) 04/26/24 07:46
Hct 42.7 % (37.0-47.0) 04/26/24 07:46
Plt Count 110 10^3/uL (130-400) L 04/26/24 07:46
Sodium 140 mmol/L (135-145) 04/26/24 07:46
Potassium 3.5 mmol/L (3.5-5.1) 04/26/24 07:46
BUN 26 mg/dl (7-17) H 04/26/24 07:46
Creatinine 0.9 mg/dL (0.6-1.0) 04/26/24 07:46
Glucose 91 mg/dl (70-99) 04/26/24 07:46
Troponins
04/24/24 04/24/24 04/25/24
15:36 22:23 03:46
Troponin I 0.117 H* 0.129 H* 0.159 H*
04/25/24
10:25
Troponin I 0.143 H*
Vital Signs and I&O:
Vital Signs
Temp Pulse Resp BP Pulse Ox
97.6 F 75 20 139/86 97
04/27/24 07:10 04/27/24 08:06 04/27/24 07:10 04/27/24 08:07 04/27/24 07:10
Vital Signs
Temp Pulse Resp BP Pulse Ox
97.6 F 75 20 139/86 97
04/27/24 07:10 04/27/24 08:06 04/27/24 07:10 04/27/24 08:07 04/27/24 07:10
Intake & Output
04/25/24 04/26/24 04/27/24 04/28/24
06:59 06:59 06:59 06:59
Intake Total 720 / 720 480 / 480
Output Total 1100 / 1100 1650 / 1650 1900 / 1900
Balance -1100 / -1100 -930 / -930 -1420 / -1420
Physical Exam
Physical Exam
GEN: No distress, awake, Ox3
HEENT: supple, anicteric, mmm
LUNGS:decreased at bases
CV: Reg, S1/S2, 2/6 syst LSB
ABD: soft, BS+, NT/ND
EXT: No edema
NEURO: Gross non-focal
SKIN: No rash
[2024-04-27 09:40] LABS: % Basophils 0.3 % (0-2); % Eosinophils 0.5 % (0-6); % Immature Granulocytes 0.5 % (0-0.5); % Lymphocytes 5.8 % (20.5-51.1); % Monocytes 8.6 % (1.7-9.3); % Neutrophils 84.3 % (42.2-75.2); Absolute Lymphocytes 0.5 10^3/uL (1.2-3.4); Absolute Monocytes 0.7 10^3/uL (0.1-0.6); Absolute Neutrophils 6.7 10^3/uL (1.4-6.5); Hematocrit 44.1 % (37.0-47.0); Hemoglobin 14.2 g/dL (12.0-16.0); Mean Corp Hgb Conc. 32.2 g/dL (33.0-37.0); Nucleated Red Blood Cells % 0 %; Platelet Count 109 10^3/uL (130-400); Red Blood Cell Count 5.25 10^6/uL (4.20-5.40); Red Cell Dist. Width 16.9 % (11.5-14.5); White Blood Cell Count 7.9 10^3/uL (4.8-10.8)
[2024-04-27 09:53] LABS: Blood Urea Nitrogen 29 mg/dl (7-17); Calcium 9.4 mg/dl (8.4-10.2); Carbon Dioxide 39 mmol/L (22-30); Chloride 94 mmol/L (98-107); Estimated Creatinine Clearance 44 ml/min; Glucose 98 mg/dl (70-99); Magnesium 1.8 mg/dl (1.6-2.3); Potassium 3.2 mmol/L (3.5-5.1); Sodium 137 mmol/L (135-145); eGFR > 60.00
--- NOTE | 2024-04-27 10:52 | W.PN.HOSP.TC ---
Today's Communication/Plan
-
Monitor vital signs
see plan
PT/OT
Continue with IV diuresis
Monitor renal function
Replete potassium aggressively
Assessment / Plan
Assessment / Plan
Acute congestive heart failure exacerbation,reduced EF
Echo 2020 with EF 60 to 65%
Continue with IV Lasix
Elevated proBNP
Chest x-ray with fluid overload
I's and O's
Echo with EF now 40%
Cardiology following
cw coreg
Intermittent periods of SVT
on coreg
replete K
Hypokalemia
replete
Elevated troponin
Likely nonischemic myocardial injury
Denies any chest pain
History of breast cancer status post mastectomy, and XRT and 2 rounds of chemotherapy
Continue with letrozole
Follows up with oncology
Essential hypertension
Continue lisinopril
Hyperlipidemia
DVT prophylaxis
Lovenox
DNR
General: Well Developed, Well Nourished and No Apparent Distress
HEENT: NormoCephalic, Moist mucous membranes and Atraumatic
Respiratory: Clear
Cardiac: S1/S2 and Regular Rhythm; No Murmur or Rub
GI: Soft, Non Tender, Non Distended and Normal Bowel Sounds
Musculoskeletal: No Edema
Neuro: Nonfocal/grossly intact
I spent a total of 51 minutes with the patient or on the floor. More than 50% of this time involved counseling and coordination of care.
Anticipated Discharge: 24 - 48 hours
Subjective/Interval History
-
Date of Service: April 27, 2024
denies chest pain
Objective Data
-
Labs:
Laboratory Results
04/27/24
08:45
WBC 7.9
Hgb 14.2
Hct 44.1
Plt Count 109 L
Sodium 137
Potassium 3.2 L
Chloride 94 L
Carbon Dioxide 39 H
BUN 29 H
Creatinine 0.9
Glucose 98
Calcium 9.4
Vital Signs:
Vital Signs
Temp Pulse Resp BP Pulse Ox
97.6 F 75 20 139/86 97
04/27/24 07:10 04/27/24 08:06 04/27/24 07:10 04/27/24 08:07 04/27/24 07:10
I&O
04/26/24 04/27/24 04/28/24
06:59 06:59 06:59
Intake Total 720 / 720 480 / 480
Output Total 1650 / 1650 1900 / 1900
Balance -930 / -930 -1420 / -1420
[2024-04-27] MEDS: KCL 40 MEQ PO (11:29)
[2024-04-27] MEDS: LOVENOX 40 MG SC (17:09)
[2024-04-27] MEDS: ALDACTONE 12.5 MG PO (17:10)
[2024-04-27] MEDS: LIPITOR 40 MG PO (17:10)
[2024-04-27] MEDS: COREG 6.25 MG PO (21:51)
[2024-04-28 03:38] VITALS: BP 145/86
--- NOTE | 2024-04-28 04:31 | DOWNTIME ---
There was a [facility] Client Brake Specialist Downtime on 04/28/2024 from 0100 to 04/29/2023 at 0420 . Downtime documentation of patient's care, including medication administrations, has been reconciled in the electronic record per guidelines. Refer to the
patient's paper chart under the miscellaneous tab to see printed paper medication records and downtime forms.
[2024-04-28 06:00] VITALS: BMI 24.9
[2024-04-28 07:10] VITALS: BP 146/90
[2024-04-28 08:20] LABS: % Basophils 0.4 % (0-2); % Eosinophils 0.6 % (0-6); % Immature Granulocytes 0.4 % (0-0.5); % Lymphocytes 8.7 % (20.5-51.1); % Monocytes 12.2 % (1.7-9.3); % Neutrophils 77.7 % (42.2-75.2); Absolute Lymphocytes 0.6 10^3/uL (1.2-3.4); Absolute Monocytes 0.9 10^3/uL (0.1-0.6); Absolute Neutrophils 5.5 10^3/uL (1.4-6.5); Hematocrit 42.3 % (37.0-47.0); Hemoglobin 13.5 g/dL (12.0-16.0); Mean Corp Hgb Conc. 31.9 g/dL (33.0-37.0); Mean Corpuscular Hgb 26.7 pg (27.0-31.0); Mean Corpuscular Volume 83.6 fL (81.0-99.0); Nucleated Red Blood Cells % 0 %; Platelet Count 103 10^3/uL (130-400); Red Blood Cell Count 5.06 10^6/uL (4.20-5.40)
[2024-04-28] MEDS: ALDACTONE 12.5 MG PO (08:40)
[2024-04-28] MEDS: FEMARA 2.5 MG PO (08:40)
[2024-04-28] MEDS: ZESTRIL 40 MG PO (08:41)
[2024-04-28] MEDS: COREG 6.25 MG PO (08:41)
[2024-04-28] MEDS: LASIX 20 MG PO (08:43)
--- NOTE | 2024-04-28 09:14 | W.PN.CARDCBS ---
Addendum entered and electronically signed by Te Larson MD 04/28/24 12:23:
I saw and examined the patient.
The Occasional Caregiver's note was reviewed and I agree with the note.
Comment: Briefly, 84-year-old woman presenting with acute heart failure with mildly reduced ejection fraction
With IV diuresis she appears euvolemic today on exam
Was transitioned to oral Lasix yesterday
Not on diuretic prior to admission- would continue current Lasix dosing on discharge, 20 mg p.o. daily
Continue lisinopril given her cardiomyopathy, dose has been uptitrated
Coreg and Aldactone added this admission as well
SGLT2 inhibitors are reportedly prohibitively expensive
Stable for discharge from my perspective, we will sign off, please recall as needed
Outpatient follow-up is scheduled with her primary cotton weigher operator, Dr. Wong
Original Note:
Today's Communication / Plan
-
Cont Lasix 20 mg PO daily
New to Coreg and spironolactone
51 min in face to face and coordination of care
Impression / Plan
-
PCP: Dr. Bourgeois
Card: Dr. Judith Vasquez
Impression:
Admitted with acute HF 04/24/24
Acute HFrEF
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
Elevated Troponin
h/o Breast cancer
Diagnosed with locally advanced node positive ER/HI positive H ER 2 negative cancer of the right breast, treated with chemo including Adriamycin and Cytoxan, then Taxol but changed to paclitaxel given adverse reaction to Taxol.
also received 6 weeks of radiation.
s/p mastectomy 10/19/2019.
cRBBB
HTN
Dyslipidemia
Hypokalemia
Echo 02/14/2020: Normal LV size and function, LVEF 66 5%, normal RV size and function, mild MR, mild TR
Echo 04/26/2024: LVEF 40 to 45%, LV global longitudinal strain is -12.7%, enlarged RV, normal RV function, biatrial enlargement, moderate MR, mild TR, PAP 35 to 40 mmHg. Compared to echo 02/2020 LV systolic dysfunction is new, RV enlargement is new,
mitral and tricuspid regurgitation have progressed
Plan:
-Patient admitted with acute HF and EF down to 40-45% by echo 04/26/24.
-Weight is down 13 lbs total this admission, but is actually up 2 lbs overnight following transition to Lasix 20 mg PO daily 04/28/24. Labs pending for 04/28/24, but BUN had been trending up.
-Potassium was down to 3.2 on 04/27/24 and KCl 40 meq was given.
-EF 40-45% by echo 04/26/24.
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
-New to Coreg 6.25 mg BID this admission
-Outpatient dose of lisinopril 20 mg daily increased to 40 mg daily this admission
-New to spironolactone 12.5 mg daily
-Patient cannot afford SGLT2 inhibitor even once she meets the deductible
-Troponin peaked at 0.159, will manage as a nonischemic myocardial injury Troponin elevation
-Patient is interested in going to rehab before returning to her independent living situation in her own home in [place]. Will keep current appt to see Dr. Wong on 06/10/24 and also scheduled an DIRECTOR SOCIAL/PA appt to be seen in 3 weeks.
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
Subjective
Date of Service: April 28, 2024
Feels better, says she might go to rehab today
Objective
Labs:
04/28/24 07:34
Labs
Hgb 13.5 g/dL (12.0-16.0) 04/28/24 07:34
Hct 42.3 % (37.0-47.0) 04/28/24 07:34
Plt Count 103 10^3/uL (130-400) L 04/28/24 07:34
Sodium Cancelled 04/28/24 07:34
Potassium Cancelled 04/28/24 07:34
BUN Cancelled 04/28/24 07:34
Creatinine Cancelled 04/28/24 07:34
Glucose Cancelled 04/28/24 07:34
Troponins
04/25/24
10:25
Troponin I 0.143 H*
Vital Signs and I&O:
Vital Signs
Temp Pulse Resp BP Pulse Ox
97.6 F 68 18 146/90 98
04/28/24 07:10 04/28/24 07:10 04/28/24 07:10 04/28/24 08:43 04/28/24 07:10
Vital Signs
Temp Pulse Resp BP Pulse Ox
97.6 F 68 18 146/90 98
04/28/24 07:10 04/28/24 07:10 04/28/24 07:10 04/28/24 08:43 04/28/24 07:10
Intake & Output
04/26/24 04/27/24 04/28/24 04/29/24
06:59 06:59 06:59 06:59
Intake Total 720 / 720 480 / 480 720 / 720
Output Total 1650 / 1650 1900 / 1900 637 / 637 300 / 300
Balance -930 / -930 -1420 / -1420 83 / 83 -300 / -300
Physical Exam
Physical Exam
GEN: AAOx3
HEENT: mmm
LUNGS: RA. No audible wheeze
CV: SR on tele.
ABD: ND
EXT: No edema B/L
NEURO: Gross non-focal
SKIN: No rash
--- NOTE | 2024-04-28 10:28 | W.PN.HOSP.TC ---
Addendum entered and electronically signed by Damon Shine MD 04/28/24 14:15:
Time of discharge 38 minutes
Original Note:
Today's Communication/Plan
-
Monitor vital signs see plan
Continue with Lasix
BMP pending today
Possible discharge today if has placement, rifle case repairer aware
Assessment / Plan
Assessment / Plan
Acute congestive heart failure exacerbation,reduced EF
Echo 2020 with EF 60 to 65%
Now transition to p.o. Lasix which is new for her
Aldactone added
Elevated proBNP
Chest x-ray with fluid overload
I's and O's
Echo with EF now 40%
Cardiology following
cw coreg
Intermittent periods of SVT
on coreg
replete K
Hypokalemia
monitor
Elevated troponin
Likely nonischemic myocardial injury
Denies any chest pain
History of breast cancer status post mastectomy, and XRT and 2 rounds of chemotherapy
Continue with letrozole
Follows up with oncology
Essential hypertension
Continue lisinopril
Hyperlipidemia
DVT prophylaxis
Lovenox
DNR
PT/OT rec SNF
General: Well Developed, Well Nourished and No Apparent Distress
HEENT: NormoCephalic, Moist mucous membranes and Atraumatic
Respiratory: Clear
Cardiac: S1/S2 and Regular Rhythm; No Murmur or Rub
GI: Soft, Non Tender, Non Distended and Normal Bowel Sounds
Musculoskeletal: No Edema
Neuro: Nonfocal/grossly intact
Anticipated Discharge: Today
Subjective/Interval History
-
Date of Service: April 28, 2024
denies pain
Objective Data
-
Labs:
Laboratory Results
04/28/24 04/28/24
07:34 08:47
WBC 7.0
Hgb 13.5
Hct 42.3
Plt Count 103 L
Sodium Cancelled Pending
Potassium Cancelled Pending
Chloride Cancelled Pending
Carbon Dioxide Cancelled Pending
BUN Cancelled Pending
Creatinine Cancelled Pending
Glucose Cancelled Pending
Calcium Cancelled Pending
Vital Signs:
Vital Signs
Temp Pulse Resp BP Pulse Ox
97.6 F 68 18 146/90 98
04/28/24 07:10 04/28/24 07:10 04/28/24 07:10 04/28/24 08:43 04/28/24 07:10
I&O
04/27/24 04/28/24 04/29/24
06:59 06:59 06:59
Intake Total 480 / 480 720 / 720 180 / 180
Output Total 1900 / 1900 637 / 637 300 / 300
Balance -1420 / -1420 83 / 83 -120 / -120
[2024-04-28 11:24] VITALS: BP 104/51
[2024-04-28 13:12] LABS: Blood Urea Nitrogen 30 mg/dl (7-17); Calcium 9.1 mg/dl (8.4-10.2); Carbon Dioxide 37 mmol/L (22-30); Chloride 91 mmol/L (98-107); Estimated Creatinine Clearance 49 ml/min; Glucose 113 mg/dl (70-99); Potassium 3.3 mmol/L (3.5-5.1); Sodium 135 mmol/L (135-145); eGFR > 60.00
[2024-04-28 13:35] VITALS: BP 138/77; PULSE 65; O2SAT 93
[2024-04-28 14:00] LABS: ALT (SGPT) 24 U/L (0-35); AST (SGOT) 21 U/L (14-36); Albumin 3.5 g/dl (3.5-5.0); Alkaline Phosphatase 84 U/L (38-126); Blood Urea Nitrogen 30 mg/dl (7-17); Calcium 9.6 mg/dl (8.4-10.2); Carbon Dioxide 39 mmol/L (22-30); Chloride 93 mmol/L (98-107); Estimated Creatinine Clearance 49 ml/min; Glucose 105 mg/dl (70-99); Potassium 3.6 mmol/L (3.5-5.1); Sodium 136 mmol/L (135-145); Total Bilirubin 1.8 mg/dl (0.2-1.3); Total Protein 6.4 g/dl (6.3-8.2); eGFR > 60.00
--- NOTE | 2024-04-28 14:11 | W.DCSUMMARY ---
Discharge Summary
Discharge Data
Date of Admission: 04/24/24
Date of Discharge: 04/28/24
-
Pending Results: No
Hospital Course
84-year-old female with past medical history of breast cancer status postmastectomy, radiation and chemotherapy, essential hypertension, hyperlipidemia came to the hospital with shortness of breath known to have acute congestive heart failure
exacerbation. Echocardiogram was done which showed reduced EF of 40%. Patient was initially treated with IV Lasix which were later transitioned to p.o. Lasix upon discharge. Given low EF, Aldactone, Coreg was also added. Patient lisinopril was
also increased on this hospitalization. She also had intermittent episodes of SVT which improved after electrolyte repletion and Coreg. She also had mild troponin elevation which was likely thought was secondary to nonischemic myocardial injury.
Patient was seen by cardiology throughout hospitalization. She was also evaluated by physical therapy recommended SNF. Once her symptoms continue to improve, she was then discharged to rehab with instructions to follow-up with all her physicians
outpatient.
Discharge Plan
-
Patient Disposition: Jail/SNF
Discharge Diagnosis/Procedures: Acute congestive heart failure exacerbation, reduced EF
Intermittent periods of SVT
Elevated troponin likely nonischemic myocardial injury
Hypokalemia
Condition: Good
Diet: As tolerated, Low Cholesterol, 2 Gram Sodium and Restrict fluids to 64 oz
Activity: With assistance and As tolerated
Driving Restrictions: As prior to admission
Bathing Restrictions: None
Specialty Instructions: Weigh Daily- Call MD for wt gain/loss 3 lbs overnight/5 lbs in 1 week
Instructions: *[facility]CA Heart Failure Instructions
Referrals:
Cecilia Bourgeois MD [Family Provider] - in less than 1 week
Judith Vasquez MD [Active] - 05/12/24 2:40 pm (You are scheduled to see Dr. Judith Vasquez's physician licensed loan officer assistant, Mitzy, at the [place] office on 05/12/24 at 2:40 PM. You are then scheduled to see Dr. Judith Vasquez at the [place] office
on 06/10/24 at 1:40 PM. Please call [phone] if you need to reschedule.)
Prescriptions:
New
atorvastatin 40 mg Tablet
40 mg PO QPM Qty: 0 0RF
carvedilol 6.25 mg Tablet
6.25 mg PO BID Qty: 0 0RF
lisinopril 20 mg Tablet
40 mg PO DAILY Qty: 0 0RF
spironolactone 25 mg Tablet
12.5 mg PO DAILY Qty: 0 0RF
furosemide 20 mg Tablet
20 mg PO DAILY Qty: 0 0RF
Continued
acetaminophen 325 MG tablet
650 mg PO Q4HPRN PRN (Reason: discomfort)
letrozole 2.5 MG tablet
2.5 mg PO DAILY
cholecalciferol (vitamin D3) 2,000 UNITS tablet
2,000 units PO DAILY
alendronate 70 mg Tablet
70 mg PO SA
Discontinued
lisinopril 20 MG tablet
20 mg PO DAILY
atorvastatin 10 MG tablet
20 mg PO QPM
Discharge Orders:
Discharge Patient (As Directed); Ordered 04/28/24
Ordered By: Damon Shine
Discharge Date and Time
Print Language: GUATEMALAN
[2024-04-28] MEDS: KCL 40 MEQ PO (14:17)
[2024-04-28 15:28] VITALS: BP 141/79
--- NOTE | 2024-04-28 15:34 | SUR.OPER ---
Report called to SHAMIR Reed at [facility]. Daughter will transport patient and is expected to arrive today at 1700.
--- NOTE | 2024-04-28 16:02 | CM ---
Both [facility] and [facility] had a SNF bed for pt today .
Spoke with dgt Emely Alonzo [phone] who spoeke with pt and requested [facility] .
Spoke with Akila at [facility] she spoke with dgt . Akila requested admission at after 5 pm .
Dgt designed she could drive to .
IMM reviewed and all questions answered. IMM on chart.
[facility]
report [phone]
fax [phone]
PLAN To [facility] SNF today
--- NOTE | 2024-04-28 16:55 | PTCARENOTE ---
Rn humanities coordinator-Assisted patient to get dressed. Patient transported to [facility] for daughter to transport to [facility].
--- NOTE | 2024-04-29 09:45 | W.HF.CON ---
Heart Failure
- LV Function
Left ventricular function study result: LV Ejection fraction 41-49%
Ejection Fraction Percentage: 40-45
- ARNI
Patient already on ARNI: No
Heart Failure ARNI Not Indicated: LV Ejection Fraction >/= 40%
- ACEI/ARB
Patient already on ACEI/ARB: Yes
- Beta Katie
Patient already on Evidence Based Beta Katie: Yes
- Mineralocorticord Receptor Antagonist
Patient already on MRA: Yes
- SGLT-2 Inhibitor
Patient already on SGLT-2 Inhibitor: No
Heart Failure SGLT-2 Inhibitor Contraindication: Patient Refusal
- NYHA CHF Classification
NYHA CHF Classification Level: Class III - Symptoms w/ min exertion, interferes w/ nml daily activity
- ACC/AHA Stage
ACC/AHA Stage: Stage C: Symptomatic Heart Failure
== END 2024-04-28 17:00 | DRG 291 ==
LOC: 4 EAST ACU 19:07
PROVIDERS: ADMITTING PHYSICIAN Internal Medicine; ATTENDING PHYSICIAN Internal Medicine; CONSULT PHYSICIAN Internal Medicine Cardiovascular Disease; EMERGENCY PHYSICIAN Emergency Medicine; FAMILY PHYSICIAN Family Medicine
DX: I11.0 Hypertensive heart disease with heart failure (principal); I50.23 Acute on chronic systolic (congestive) heart failure; I47.10 Supraventricular tachycardia, unspecified; Z85.3 Personal history of malignant neoplasm of breast; E78.00 Pure hypercholesterolemia, unspecified; I5A Non-ischemic myocardial injury (non-traumatic); Z66 Do not resuscitate; E87.6 Hypokalemia; Z92.3 Personal history of irradiation; Z92.21 Personal history of antineoplastic chemotherapy; I45.10 Unspecified right bundle-branch block; Z79.899 Other long term (current) drug therapy; Z79.83 Long term (current) use of bisphosphonates; Z79.811 Long term (current) use of aromatase inhibitors; I42.7 Cardiomyopathy due to drug and external agent
CPT/HCPCS: 71046; 80048; 80053; 80061; 82248; 83735; 83880; 84443; 84484; 85025; 93005; 93306; 93356; 96374; 97116; 97161; 97167; 99285; 99406

== ENCOUNTER → 2024-09-23 13:47 | Outpatient (REF) | payer MEDICARE, OTHER, SELFPAY | LOC: WDC 13:47 | PROVIDERS: ATTENDING PHYSICIAN Internal Medicine Hematology & Oncology; FAMILY PHYSICIAN Family Medicine | DX: Z12.31 Encounter for screening mammogram for malignant neoplasm of breast (principal) | CPT/HCPCS: 77063; 77067 ==

== ENCOUNTER → 2024-12-01 09:15 | Outpatient (REF) | payer MEDICARE, OTHER, SELFPAY | LOC: RCS 09:15 | PROVIDERS: ATTENDING PHYSICIAN Internal Medicine Cardiovascular Disease; FAMILY PHYSICIAN Family Medicine | DX: I50.20 Unspecified systolic (congestive) heart failure (principal); C50.919 Malignant neoplasm of unspecified site of unspecified female breast | CPT/HCPCS: 93306; 93356 ==